=== PATIENT | female | born 1975 | race Caucasian/White ===

== ENCOUNTER 2017-12-19 05:54 | Inpatient (IN) | payer OTHER ==
[2017-12-19] MEDS: LACTATED RINGER'S 1,000 ML IV ×3 (06:00→14:16)
[2017-12-19 07:00] LABS: ADD MAN DIFF? NO
[2017-12-19 07:05] LABS: WHITE BLOOD COUNT 11.8 10^3/ul (4.8-10.8)
[2017-12-19 07:05] LABS: BASOPHIL # 0.1 10^3/ul (0.0-0.1); EOSINOPHILS # 0.1 10^3/ul (0.0-0.5); EOSINOPHILS % 0.7 % (0.0-7.0); HEMATOCRIT 43.5 % (37.0-47.0); HEMOGLOBIN 14.6 g/dl (12.0-16.0); LYMPHOCYTES # 1.7 10^3/ul (0.8-2.9); LYMPHOCYTES % 14.7 % (15.0-51.0); MEAN CORPUSCULAR HEMOGLOBIN 29.9 pg (29.0-33.0); MEAN CORPUSCULAR HGB CONC 33.6 g/dl (32.0-37.0); MEAN PLATELET VOLUME 10.6 fl (7.4-10.4); MONOCYTE # 0.6 10^3/ul (0.3-0.9); MONOCYTES % 5.2 % (0.0-11.0); NEUTROPHIL # 9.1 10^3/ul (1.6-7.5); NEUTROPHILS % 77.2 % (39.0-77.0); PLATELET COUNT 610 10^3/UL (140-415); RED BLOOD COUNT 4.89 10^6/ul (4.20-5.40); RED CELL DISTRIBUTION WIDTH 14.5 % (11.5-14.5)
[2017-12-19 07:33] LABS: ANION GAP 17 (8-16); CARBON DIOXIDE 22 mmol/L (21-31); CHLORIDE 107 mmol/L (97-110); GLUCOSE 94 mg/dl (70-220)
[2017-12-19 07:35] LABS: BLOOD UREA NITROGEN 17 mg/dl (7-20); CALCIUM 9.2 mg/dl (8.4-10.2); CREATININE 1.35 mg/dl (0.44-1.00); POTASSIUM 4.3 mmol/L (3.5-5.1); SODIUM 142 mmol/L (135-144)
[2017-12-19] MEDS ORDERED: GLYCOPYRROLATE 1 MG INJ (07:48)
[2017-12-19] MEDS ORDERED: MIDAZOLAM 1 MG/ML 2 ML INJ (07:48)
[2017-12-19] MEDS ORDERED: PROPOFOL 20 ML (07:48)
[2017-12-19] MEDS ORDERED: NEOSTIGMINE 3 MG/3 ML SYRINGE (07:48)
[2017-12-19] MEDS ORDERED: FENTAnyl 50 MCG/ML VIAL (07:48)
[2017-12-19] MEDS ORDERED: LIDOCAINE 2% (SDV) 5 ML INJ (07:48)
[2017-12-19] MEDS ORDERED: morphine SULFATE/PF (10 MG/10 ML) INJ (07:48)
[2017-12-19] MEDS ORDERED: ROCURONIUM 50 MG INJ (07:48)
[2017-12-19] MEDS ORDERED: LABETALOL HCL 20MG INJ IV (08:00)
[2017-12-19] MEDS ORDERED: hydrALAzine 20 MG INJ IV (08:00)
[2017-12-19] MEDS ORDERED: MIDAZOLAM 1 MG/ML 2 ML INJ IV (08:00)
[2017-12-19] MEDS ORDERED: OXYCODONE/ACETAMINOPHEN (5/325) TAB PO ×2 (08:00)
[2017-12-19] MEDS ORDERED: ATROPINE 1 MG/10 ML SYRINGE IV (08:00)
[2017-12-19] MEDS ORDERED: EPHEDrine SULFATE 50 MG/5 ML SYG IV (08:00)
[2017-12-19] MEDS ORDERED: FENTAnyl 50 MCG/ML VIAL IV ×2 (08:00)
[2017-12-19] MEDS ORDERED: DEXAMETHASONE 4 MG/ML 1 ML INJ (08:21)
[2017-12-19] MEDS ORDERED: ONDANSETRON 4 MG INJ (08:40)
[2017-12-19] MEDS: CLINDAMYCIN 900 MG/D5W (PMX) 50 ML IVPB ×2 (08:50→18:27)
[2017-12-19] MEDS: GENTAMICIN 120 MG/NS (PMX) 100 ML IVPB ×2 (08:50→20:48)
[2017-12-19] MEDS ORDERED: CLINDAMYCIN 600 MG/D5W (PMX) 50 ML IVPB (09:04)
[2017-12-19] MEDS ORDERED: GENTAMICIN 80 MG/NS (PMX) 50 ML (09:04)
[2017-12-19] MEDS ORDERED: CLINDAMYCIN 300 MG/D5W (PMX) 50 ML IVPB (09:20)
[2017-12-19] MEDS ORDERED: METHYLENE BLUE 1% 10 ML INJ (11:06)
[2017-12-19] MEDS: BUPIVACAINE 0.5%/EPI (SDV) 30 ML INJ (11:07)
[2017-12-19] MEDS ORDERED: FUROSEMIDE 20 MG INJ (11:08)
[2017-12-19] MEDS ORDERED: DIPHENHYDRAMINE 50 MG INJ (12:59)
[2017-12-19] MEDS ORDERED: IBUPROFEN 600 MG TAB PO (13:00)
[2017-12-19] MEDS ORDERED: ONDANSETRON 4 MG INJ IV (13:00)
[2017-12-19] MEDS: DIPHENHYDRAMINE 50 MG INJ IV (13:08)
[2017-12-19] MEDS: MEPERIDINE 25 MG INJ IV (13:11)
[2017-12-19] MEDS: ONDANSETRON 4 MG INJ IV (13:12)
[2017-12-19] MEDS ORDERED: GENTAMICIN IV PER PHARMACY XX ×2 (13:30→14:30)
[2017-12-19] MEDS: DOCUSATE SODIUM 100 MG CAP PO (14:12)
[2017-12-19] MEDS: DIPHENHYDRAMINE 25 MG CAP PO (18:27)
[2017-12-19] MEDS ORDERED: VITAMIN A & D 5 GM OINT PACKET TOP (20:43)
[2017-12-19] MEDS: FLUTICASONE 0.05% 16 GM NAS SPRAY NASAL (20:46)
[2017-12-19] MEDS: METOPROLOL 25 MG TAB PO (20:46)
[2017-12-19] MEDS: BUPROPION (XL) 150 MG TAB PO (21:47)
[2017-12-19] MEDS: PROMETHAZINE 25 MG TAB PO (22:26)
[2017-12-20] MEDS: CLINDAMYCIN 900 MG/D5W (PMX) 50 ML IVPB ×2 (00:10→06:19)
[2017-12-20] MEDS ORDERED: CEPASTAT LOZENGE MT (01:00)
[2017-12-20] MEDS: LEVOTHYROXINE 125 MCG TAB PO (08:00)
[2017-12-20] MEDS: DOCUSATE SODIUM 100 MG CAP PO (08:01)
[2017-12-20] MEDS: FLUTICASONE 0.05% 16 GM NAS SPRAY NASAL ×2 (08:01→20:14)
[2017-12-20] MEDS: METOPROLOL 25 MG TAB PO ×2 (08:01→20:12)
[2017-12-20] MEDS: MULTIVITAMINS THERAPEUTIC TAB PO (08:07)
[2017-12-20] MEDS: GENTAMICIN 120 MG/NS (PMX) 100 ML IVPB (08:20)
[2017-12-20] MEDS: HYDROCODONE/APAP (5/325) TAB PO ×2 (11:33→20:11)
[2017-12-20] MEDS: ATORVASTATIN 20 MG TAB PO (20:13)
[2017-12-20] MEDS: BUPROPION (XL) 150 MG TAB PO (20:14)
== END 2017-12-20 20:45 | disposition home or self-care (01) | DRG 743 ==
LOC: REC 05:54 → MS2 13:45
PROC: 0UT9FZZ Resection of Uterus, Via Natural or Artificial Opening With Percutaneous Endoscopic Assistance (ICD-10-PCS; principal; 2017-12-19 08:00)
PROC: 0UT7FZZ Resection of Bilateral Fallopian Tubes, Via Natural or Artificial Opening With Percutaneous Endoscopic Assistance (ICD-10-PCS; 2017-12-19 08:00)
PROC: 0TJB8ZZ Inspection of Bladder, Via Natural or Artificial Opening Endoscopic (ICD-10-PCS; 2017-12-19 08:00)
DX: N92.1 Excessive and frequent menstruation with irregular cycle (principal); D25.9 Leiomyoma of uterus, unspecified; D64.9 Anemia, unspecified; R10.2 Pelvic and perineal pain
CPT/HCPCS: 80048; 84703; 85025; 86850; 86900; 86901; 86920; 87086; 88305; J1940